=== PATIENT | male | born 1950 | race Caucasian/White ===

== ENCOUNTER 2020-02-14 11:07 | Outpatient (CLI) | payer MEDICARE, SELFPAY ==
--- NOTE | ~2020-02-14 | XR_ITS ---
EXAMINATION: XR chest 2V EXAM DATE: 02/14/2020 11:28 INDICATION: Anorexia. Weight loss. TECHNIQUE: Frontal and lateral projections of the chest obtained and reviewed. Comparison is made to prior examination from 03/23/2015. FINDINGS: Moderate hyperinflation. The lungs are clear. There are no pleural effusions. The cardio mediastinal silhouette is within normal limits. There is no pneumothorax suspected. The bones and s oft tissues are unremarkable. IMPRESSION: 1. No acute cardiopulmonary findings. 2. Hyperinflation. Reviewed, dictated and finalized at location B.
== END 2020-02-14 11:08 | disposition home or self-care (01) ==
LOC: CHSIMG 11:11
PROVIDERS: PCP Internal Medicine; Visit Provider Internal Medicine
DX: R63.0 Anorexia (principal); R63.4 Abnormal weight loss; F32.9 Major depressive disorder, single episode, unspecified; E53.8 Deficiency of other specified B group vitamins
CPT/HCPCS: 71046